=== PATIENT | female | born 1970 | race Caucasian/White ===

== ENCOUNTER 2019-02-03 12:46 | Emergency (ER) | payer OTHER ==
[2019-02-03 13:03] LABS: ADD MAN DIFF? NO
[2019-02-03 13:07] LABS: ABNORMAL IP MESSAGE 1; BASOPHILS % 0.5 % (0.0-2.0); EOSINOPHILS % 0.7 % (0.0-7.0); HEMATOCRIT 37.4 % (37.0-47.0); HEMOGLOBIN 12.8 g/dl (12.0-16.0); LYMPHOCYTES # 0.7 10^3/ul (0.8-2.9); LYMPHOCYTES % 16.8 % (15.0-51.0); MEAN CORPUSCULAR HEMOGLOBIN 30.5 pg (29.0-33.0); MEAN CORPUSCULAR HGB CONC 34.2 g/dl (32.0-37.0); MEAN PLATELET VOLUME 10.5 fl (7.4-10.4); MONOCYTE # 0.4 10^3/ul (0.3-0.9); MONOCYTES % 8.9 % (0.0-11.0); NEUTROPHIL # 2.9 10^3/ul (1.6-7.5); NEUTROPHILS % 72.6 % (39.0-77.0); PLATELET COUNT 62 10^3/UL (140-415)
[2019-02-03 13:10] LABS: POSITIVE DIFF @See below
[2019-02-03 13:25] LABS: ANION GAP 12 (5-13); BLOOD UREA NITROGEN 7 mg/dl (7-20); CALCIUM 9.9 mg/dl (8.4-10.2); CARBON DIOXIDE 26 mmol/L (21-31); CHLORIDE 101 mmol/L (97-110); CREATININE 0.49 mg/dl (0.44-1.00); Estimated GFR > 60 mL/min (>60); GLUCOSE 132 mg/dl (70-220); POTASSIUM 3.7 mmol/L (3.5-5.1); SODIUM 139 mmol/L (135-144)
[2019-02-03 13:27] LABS: ETHANOL < 10.0 mg/dl (0-0)
[2019-02-03 13:36] LABS: ADD UMIC YES; UR ASCORBIC ACID 40 mg/dL (NEGATIVE); UR BILIRUBIN (Dip) NEGATIVE (NEGATIVE); UR BLOOD (Dip) 1+ mg/dL (NEGATIVE); UR CLARITY CLEAR (CLEAR); UR COLOR YELLOW (YELLOW); UR GLUCOSE (Dip) NEGATIVE (NEGATIVE); UR KETONES (Dip) TRACE mg/dL (NEGATIVE); UR LEUKOCYTE ESTERASE (Dip) NEGATIVE Leu/ul (NEGATIVE); UR MUCUS MANY /HPF (NONE SEEN); UR NITRITE (Dip) NEGATIVE (NEGATIVE); UR RBC 4 /HPF (0-5); UR SPECIFIC GRAVITY (Dip) 1.012 (1.003-1.030); UR TOTAL PROTEIN (Dip) NEGATIVE (NEGATIVE); UR UROBILINOGEN (Dip) 2+ mg/dL (NEGATIVE); UR WBC 4 /HPF (0-5)
[2019-02-03 13:45] LABS: UR BACTERIA FEW /HPF (NONE SEEN)
[2019-02-03 13:50] LABS: AMPHETAMINE/METHAMPHETAMINE Negative (NEGATIVE); BARBITURATES Negative (NEGATIVE); CANNABINOIDS Negative (NEGATIVE); COCAINE Negative (NEGATIVE); OPIATES Negative (NEGATIVE)
[2019-02-03 13:51] LABS: BENZODIAZEPINES Positive (NEGATIVE)
[2019-02-03 13:58] LABS: ALANINE AMINOTRANSFERASE 55 IU/L (13-69); ALKALINE PHOSPHATASE 72 IU/L (42-121); ASPARTATE AMINO TRANSFERASE 114 IU/L (15-46); BILIRUBIN,INDIRECT 4.9 mg/dl (0-1.1); BILIRUBIN,TOTAL 4.9 mg/dl (0.2-1.3); TOTAL PROTEIN 7.9 g/dl (6.1-8.1)
[2019-02-03 13:58] LABS: AMMONIA 20 umol/l (9-30)
[2019-02-03] MEDS: SOD CHLORIDE 0.9% 1,000 ML IV (14:26)
[2019-02-03] MEDS: SOD CHLORIDE 0.9% 250 ML IV* (14:44)
[2019-02-03] MEDS ORDERED: SOD CHLORIDE 0.9% 1,000 ML IV (14:52)
[2019-02-03] MEDS ORDERED: LABETALOL HCL 20MG INJ IV (15:00)
[2019-02-03] MEDS ORDERED: ONDANSETRON 4 MG INJ IV ×2 (15:00)
[2019-02-03] MEDS ORDERED: LORAZEPAM 2 MG INJ IV (15:00)
[2019-02-03] MEDS ORDERED: NACL 0.9% 3 ML SYG IV (15:00)
[2019-02-03] MEDS ORDERED: ACETAMINOPHEN 325 MG TAB PO (15:00)
[2019-02-03 15:02] LABS: INR 1.44; PROTIME 17.6 Sec (11.9-14.9); PT RATIO 1.4
[2019-02-03] MEDS: LEVETIRACETAM 1000 MG (PMX) 100 ML IVPB (15:02)
[2019-02-03] MEDS: SOD CHLORIDE 0.9% 100 ML (15:27)
[2019-02-03] MEDS: IOHEXOL 100 ML (15:27)
[2019-02-03] MEDS ORDERED: ALBUTEROL/IPRATROPIUM (NEB) 3 ML AMP HHN (15:30)
[2019-02-03] MEDS: SOD CHLORIDE 0.9% 0 ML IV (16:54)
[2019-02-03] MEDS: DESMOPRESSIN 18 MCG in SOD CHLORIDE 0.9% 50 ML IVPB (16:55)
[2019-02-03] MEDS: SOD CHLORIDE 0.45% 1,000 ML IV (16:58)
[2019-02-03 17:55] LABS: TYPE AND SCREEN 1 1
[2019-02-03] MEDS ORDERED: LEVETIRACETAM 1000 MG (PMX) 100 ML IVPB (23:00)
[2019-02-04] MEDS ORDERED: PANTOPRAZOLE 40 MG INJ IV (06:00)
== END 2019-02-03 19:49 | disposition short-term general hospital (02) ==
LOC: E/R 19:49
PROVIDERS: Pediatrics Neonatal-Perinatal Medicine
DX: I61.8 Other nontraumatic intracerebral hemorrhage (principal); R56.9 Unspecified convulsions; R41.82 Altered mental status, unspecified; K70.30 Alcoholic cirrhosis of liver without ascites; D72.819 Decreased white blood cell count, unspecified; D69.6 Thrombocytopenia, unspecified; Q28.2 Arteriovenous malformation of cerebral vessels; E80.6 Other disorders of bilirubin metabolism; R74.0 Nonspecific elevation of levels of transaminase and lactic acid dehydrogenase [LDH]; R79.1 Abnormal coagulation profile; R40.2132 Coma scale, eyes open, to sound, at arrival to emergency department; R40.2242 Coma scale, best verbal response, confused conversation, at arrival to emergency department; R40.2352 Coma scale, best motor response, localizes pain, at arrival to emergency department; J45.909 Unspecified asthma, uncomplicated
CPT/HCPCS: 36415; 36430; 70450; 70496; 70498; 71045; 80048; 80076; 80307; 81001; 81025; 82140; 85025; 85610; 86850; 86900; 86901; 93005; 96374; 96375; 99285-25